=== PATIENT | male | born 1985 | race Caucasian/White ===

== ENCOUNTER → 2019-12-02 13:18 | Outpatient (BNVA) | payer SELFPAY | PROVIDERS: Visit Provider Nurse Practitioner Family | DX: M79.643 Pain in unspecified hand (principal) | CPT/HCPCS: 73130 ==

== ENCOUNTER 2020-04-20 22:12 | Emergency (ER) | payer SELFPAY ==
--- NOTE | 2020-04-20 22:13 | XRR_ITS ---
PROCEDURE INFORMATION: Exam: XR Left Shoulder Exam date and time: 04/20/2020 10:33 PM Age: 35 years old Clinical indication: Pain; Shoulder; Left TECHNIQUE: Imaging protocol: XR Left shoulder. Views: 2 or more views. COMPARISON: No relevant prior studies available. FINDINGS: Bones/joints: No acute osseous pathology. Anatomic alignment. Soft tissues: Unremarkable soft tissues. XR/XR shoulder LT min 2V* [id number] IMPRESSION: No acute osseous pathology.
[2020-04-20 22:26] VITALS: BP 154/93; PULSE 97; RESP 18; TEMP 36.8; O2SAT 99; BMI 25.8
[2020-04-20 23:46] VITALS: BP 154/84; PULSE 84; RESP 18; O2SAT 98
--- NOTE | 2020-04-20 23:50 | W.ED.EXTPRO ---
HPI - Extremity Problem General: Chief complaint: Extremity Injury, Upper Stated complaint: L SHOULDER PAIN Time Seen by Provider: 04/20/20 23:41 Source: patient Mode of arrival: ambulatory Limitations: no limitations History of Present Illness: HPI Narrative: 35-year-old male patient presents to the emergency department with 2 to 3-week history of left shoulder pain. States has attempted conservative therapy along with range of motion exercises which has not been helpful. He is employed through fencing work, his spouse reports may have injured his shoulder while trying to wrestle a 400 pound pig that got out. He reports pain to the left shoulder with movement of the left arm -denies other symptoms such as neck pain, elbow pain or weakness. MD Complaint: joint pain (left shoulder) Onset (ago): week(s) (2-3) Pain Consistency: intermittent Location: right and upper extremity Severity scale (1-10): 5 Quality: aching and dull Radiation: distal Relieving factors: rest Exacerbating factors: rest Associated symptoms: Reports no associated symptoms; Deny chest pain, fever(s) or rash Review of Systems General: Reports: 10 or more systems reviewed and unremarkable except in HPI and below Const: Denies: fever(s), chills or diaphoresis Eyes: Denies: blurry vision or eye redness ENMT: Denies: throat pain, dental pain or disequilibrium Card: Denies: chest pain, palpitations or irregular heart rhythm Resp: Denies: dyspnea, productive cough, non-productive cough or wheezing GI: Denies: abdominal pain, nausea or vomiting : Denies: dysuria Musc: Reports: extremity pain (left shoulder) and limited range of motion (left shoulder); Denies: neck pain or back pain Skin/Breast: Denies: rash or pruritus Neuro: Denies: headache(s), weakness in extremities or behavioral changes Psych: Denies: anxiety or depression Brayden/Lymph: Denies: easy bruising PFS ED PFSH: Social History (Updated 12/02/19 @ 13:01 by Chantel Pagan LPN) Smoking and tobacco status: current every day smoker Physical Exam Const: COMMON NORMALS: no acute distress, average body habitus, patient oriented x3, healthy appearing, alert and well nourished GENERAL APPEARANCE: cooperative, comfortable, well kempt, well developed and well hydrated; not anxious, not combative and not ill appearing NUTRITIONAL APPEARANCE: thin ORIENTATION/CONSCIOUSNESS: Yes awake, Yes oriented to person, Yes oriented to place and Yes oriented to time HENMT: COMMON NORMALS: normocephalic, Normal external nose present and moist oral mucous membranes HEAD & SCALP: normocephalic NOSE: Normal external nose present Eye: COMMON NORMALS: Equal, round and reactive pupils present and EOMs intact bilaterally GENERAL EYE: appearance normal, both eyes and all related structures PUPIL: Yes Equal, round and reactive pupils present Neck/C-Spine: COMMON NORMALS: full ROM, no lymphadenopathy and supple GENERAL: Yes normal visual inspection and Yes trachea midline CERVICAL SPINE: Yes cervical ROM normal, No pain with cervical ROM, No Cervical spine tenderness, No Paracervical muscle tenderness and No Trapezius muscle tenderness Lymph: LYMPHATIC: no lymphadenopathy noted Chest: COMMONS NORMALS: normal inspection of the chest CHEST: Yes tenderness pectoral muscle (with swelling) on the left Resp: COMMON NORMALS: normal respiratory effort, No retractions, No use of accessory muscles and clear to auscultation bilaterally EFFORT & INSPECTION: Yes able to speak in complete sentences AUSCULTATION: clear to auscultation bilaterally Cardio: COMMON NORMALS: regular rhythm, S1 normal heart sound present, S2 normal heart sound present and Peripheral pulses 2+ throughout RHYTHM: regular rhythm HEART SOUNDS: S1 normal heart sound present and S2 normal heart sound present PERIPHERAL PULSES: Peripheral pulses 2+ throughout GI: COMMON NORMALS: Normal to inspection, nondistended, normoactive bowel sounds present, Soft to palpation and non-tender INSPECTION: Yes normal to inspection PALPATION: Yes Soft to palpation : COMMON NORMALS: Yes no CVA tenderness BLADDER/KIDNEY EXAM: Yes no CVA tenderness Back/Pelvis: COMMON NORMALS: no CVA tenderness and thoracic and lumbar spine normal to inspection Extremity: COMMON NORMALS: normal to inspection and capillary refill normal GENERAL: Yes normal exam except as noted LEFT UPPER EXTREMITY: Yes shoulder joint Left shoulder joint: Yes inspection (pain anterior), Yes palpation (swelling anteriorlly), Yes ROM (limited at 90 degrees abduction, limited external/internal rotation), Yes neurovascular exam (distally intact) and Yes special tests Neuro: COMMON NORMALS: patient oriented x3 and no focal motor deficits SENSORIUM/ORIENTATION: Yes alert, Yes oriented to person, Yes oriented to place and Yes oriented to time Psych: COMMON NORMALS: mental status grossly normal, Normal thought process present and cooperative APPEARANCE: Yes well kempt ACTIVITY/MOTOR BEHAVIOR: Yes appropriate eye contact THOUGHT PROCESS: Normal thought process present Skin: COMMON NORMALS: no rashes or lesions noted and turgor normal GENERAL SKIN EXAM: no rashes or lesions noted and turgor normal Course Vital Signs: Vital signs: Vital Signs Temperature 98.2 F 04/20/20 22:26 Pulse Rate 81 04/21/20 00:13 Respiratory Rate 16 04/21/20 00:13 Blood Pressure 161/89 04/21/20 00:13 Pulse Oximetry 99 04/21/20 00:13 Discharge Plan Discharge Patient Disposition: Home Clinical Impression: Left shoulder pain Qualifiers: Chronicity: acute Qualified Code(s): M25.512 - Pain in left shoulder Left shoulder strain Qualifiers: Encounter type: initial encounter Qualified Code(s): S46.912A - Strain of unspecified muscle, fascia and tendon at shoulder and upper arm level, left arm, initial encounter Condition: Stable Prescriptions: New prednisone 20 mg tablet 20 mg PO BID 5 Days Qty: 10 RF: 0 cyclobenzaprine 10 mg tablet 10 mg PO TID PRN (Reason: muscle spasm) Qty: 20 RF: 0 naproxen 500 mg tablet 500 mg PO BID PRN (Reason: pain) Qty: 20 RF: 0 Discontinued prednisone 20 mg tablet 20 mg PO DAILY Qty: 5 RF: 0 Discharge Orders: Discharge ED (Routine); Ordered 04/20/20 Ordered By: Aminta Pathak Referrals: uLz John DO [Primary Care Provider] - Discharge Diet: Usual diet Discharge Activity: Limit activity as instructed Patient Instructions: Shoulder Sprain (ED), Adhesive Capsulitis (ED) Activity Restrictions/Additional Instructions: Referral to orthopedic specialty has been completed tonight, social sciences research scientist will be contacting you with an appointment Continue with shoulder exercises Take naproxen, prednisone with food Wear arm sling only as needed, complete range of motion exercises every 1-2 hours such as small circles, walking your arm up and down the wall to help with range of motion and prevention of frozen shoulder May apply cool compresses and alternate with warm moist heat as needed for pain Return to the emergency department for worsening symptoms Coding Level of Care Code ED Lithographing Machine Operator for Rachelg Fwd Exam Comprehensive
[2020-04-21] MEDS: HYDROcodone-acetaminophen 5-325 mg Tablet 1 TAB PO (00:12)
[2020-04-21] MEDS: naproxen 500 mg Tablet PO (00:12)
[2020-04-21 00:13] VITALS: BP 161/89; PULSE 81; RESP 16; O2SAT 99
--- NOTE | 2020-04-21 10:25 | DCPLANNER ---
manager advertising had message to schedule a follow up appointment for patient with ortho. manager advertising called the ortho clinic, spoke with Soniya, gave clinic patients information. manager advertising was told that patients information would be printed and reviewed. Clinic will call patient with appointment information.
--- NOTE | 2020-04-29 13:16 | DCPLANNER ---
Patient has a follow up appointment scheduled for Monday, May 14, 2020 at 10:[address] Good. Clinic will call patient with appointment information.
--- NOTE | 2020-05-20 15:57 | DCPLANNER ---
Patient had a follow up appointment scheduled for 05.04.20 with ortho - patient did attend appointment.
== END 2020-04-21 00:14 | disposition home or self-care (01) ==
PROVIDERS: Emergency Provider Nurse Practitioner Family; PCP Family Medicine
DX: S46.912A Strain of unspecified muscle, fascia and tendon at shoulder and upper arm level, left arm, initial encounter (principal); F17.210 Nicotine dependence, cigarettes, uncomplicated; X50.9XXA Other and unspecified overexertion or strenuous movements or postures, initial encounter
CPT/HCPCS: 12345; 73030; 99282; 99283

== ENCOUNTER → 2020-05-04 11:04 | Outpatient (BNVA) | payer SELFPAY | PROVIDERS: PCP Family Medicine; Referring Provider Nurse Practitioner Family; Visit Provider Specialist | DX: M19.012 Primary osteoarthritis, left shoulder (principal); M25.512 Pain in left shoulder | CPT/HCPCS: 73030 ==